=== PATIENT | male | born 1940 | race Caucasian/White ===

== ENCOUNTER 2018-02-10 01:47 | Inpatient (IN) | payer MEDICARE ==
[2018-02-10] VITALS (23 sets, daily range): BP systolic 89–127; BP diastolic 41–80; Ht 182.9 cm; Wt 72.0 kg
[~2018-02-10] VITALS: Ht 182.9 cm; Wt 72.0 kg
--- NOTE | ~2018-02-10 | MORECARE ---
CASE MANAGEMENT DISCHARGE SUMMARY PATIENT: RESHMA MORRIS UNIT: [id number] ADM DATE: 02/10/18 AGE: 77 : 41 SEX: M ROOM/BED: D.2301 AUTHOR: FRANDY CHRISTIAN PHYSICIAN: REFERRING PHYSICIAN: RESHMA MINOR MD DATE OF SERVICE: 02/10/18 Discharge Plan Patient Name: RESHMA MORRIS Facility: [facility]:[place] : 1940 Planned Disposition: Home or Self Care Anticipated Discharge Date: Discharge Date: Expected LOS: Initial Reviewer: [email or web address] Initial Review Date: 02/10/2018 Generated: 02/10/18 12:25 pm Comments DCP- Discharge Planning Updated by [email or web address]: Courtney Partida on 02/10/18 10:[address] Patient Name: RESHMA MORRIS Admission Status: ER Accout number: [id number] Admission Date: 02-10-2018 : 1940 Admission Diagnosis: Attending: RESHMA MINOR Current LOS: 1 Anticipated DC Date: Planned Disposition: Home or Self Care Primary Insurance: MEDICARE A & B Discharge Planning Comments: CM met with patient at bedside after obtaining verbal consent. Patient plans on returning home with his . Patient denies any discharge needs at this time. CM will continue to follow and assist as needed with discharge planning/ needs. Supervisor Hardboard: Courtney Partida DCPIA - Discharge Planning Initial Assessment Updated by [email or web address]: Courtney Partida on 02/10/18 11:14 am * Is the patient Alert and Oriented? Yes * How many steps to enter\exit or inside your home? * PCP [facility]ie [facility] Neurologist RACHANA Menon * Pharmacy [facility] * Preadmission Environment Home with Family * ADLs Independent * Equipment None * List name and contact numbers for known caregivers / representatives who currently or will assist patient after discharge: Isha Morris - spouse- [phone] * Verbal permission to speak to the caregivers and representatives has been obtained from the patient. N/A * Community resources currently utilized None * Additional services required to return to the preadmission environment? No * Can the patient safely return to the preadmission environment? Yes * Has this patient been hospitalized within the prior 30 days at any hospital? No Last DP export: 02/10/18 10:17 Patient Name: RESHMA MORRIS Page [id number] at 1125 All edits/amendments must be made on the electronic document DICTATION DATE: 02/10/181124 LIFE INS[employer]ANCE UNDERWRITER: MICHELLE 02/10/181124 RPT#: [id number] DC DATE: STATUS: ADM IN [facility] [address] [place] [address] END OF REPORT
--- NOTE | ~2018-02-10 | DS ---
PATIENT:RESHMA MORRIS :[birth year] MEDICAL RECORD: [id number] DISCHARGE SUMMARY ADMISSION DATE: 02/10/18 DISCHARGE DATE: 02/12/18 Mr. Morris was admitted to the hospital for observation after he complained of a bout of vertigo while driving, subsequently became nauseated and called 911. He became quite lethargic for 30 minutes and recovered in normal level of consciousness upon his arrival to the [facility]. He remained neurologically stable throughout his hospital stay and was discharged in the care of his brother back home to [place]. DISCHARGE MEDICATIONS: His discharge medications were the same as his admission medications. ACTIVITIES: Ad kurt. FOLLOWUP: He is to follow up with his primary care in [place] as well as neurosurgery. TRANSINT:[id number] Voice Confirmation ID: [id number] DOCUMENT ID: [id number] RESHMA MINOR MD CC: [id number] DICTATION DATE: 03/13/18 1155 GLUE BONE CRUSHER: 03/13/18 2337 DIS IN 02/12/18 [place] [id number] [place] [id number]
--- NOTE | ~2018-02-10 | MORECARE ---
CASE MANAGEMENT DISCHARGE SUMMARY PATIENT: RESHMA MORRIS UNIT: [id number] ADM DATE: 02/10/18 AGE: 77 : 41 SEX: M ROOM/BED: D.2301 AUTHOR: FRANDY CHRISTIAN PHYSICIAN: REFERRING PHYSICIAN: RESHMA MINOR MD DATE OF SERVICE: 02/10/18 Discharge Plan Patient Name: RESHMA MORRIS [facility] [facility] 1940 Planned Disposition: Home or Self Care Anticipated Discharge Date: Discharge Date: Expected LOS: Initial Reviewer: [email or web address] Initial Review Date: 02/10/2018 Generated: 02/10/18 12:17 pm DCPIA - Discharge Planning Initial Assessment Updated by [email or web address]: Courtney Partida on 02/10/18 11:14 am * Is the patient Alert and Oriented? Yes * How many steps to enter\exit or inside your home? * PCP [facility]ie [facility] Neurologist RACHANA Menon * Pharmacy [facility] * Preadmission Environment Home with Family * ADLs Independent * Equipment None * List name and contact numbers for known caregivers / representatives who currently or will assist patient after discharge: Isha Morris - [facility]- [phone] * Verbal permission to speak to the caregivers and representatives has been obtained from the patient. N/A * Community resources currently utilized None * Additional services required to return to the preadmission environment? No * Can the patient safely return to the preadmission environment? Yes * Has this patient been hospitalized within the prior 30 days at any hospital? No Patient Name: RESHMA MORRIS Page [id number] at 1117 All edits/amendments must be made on the electronic document DICTATION DATE: 02/10/186 QUILL WINDER: MICHELLE 02/10/181115 RPT#: [id number] DC DATE: STATUS: ADM IN [facility] [address] [place] [address] END OF REPORT
--- NOTE | ~2018-02-10 | MORECARE ---
CASE MANAGEMENT DISCHARGE SUMMARY PATIENT: RESHMA MORRIS UNIT: [id number] ADM DATE: 02/10/18 AGE: 77 : 41 SEX: M ROOM/BED: D.2308 AUTHOR: GINODOC PHYSICIAN: REFERRING PHYSICIAN: RESHMA MINOR MD DATE OF SERVICE: 02/12/18 Discharge Plan Patient Name: RESHMA MORRIS Facility: [facility]:[place] : 1940 Planned Disposition: Home or Self Care Anticipated Discharge Date: Discharge Date: 02/12/2018 Expected LOS: Initial Reviewer: [email or web address] Initial Review Date: 02/10/2018 Generated: 02/12/18 12:10 pm Comments DCP- Discharge Planning Updated by [email or web address]: Courtney Partida on 02/12/18 10:[address] IMM Explained and served 02/12/18 @ 0935 DCP- Discharge Planning Updated by [email or web address]: Courtney Partida on 02/10/18 10:[address] Patient Name: RESHMA MORRIS Admission Status: ER Accout number: [id number] Admission Date: 02-10-2018 : 1940 Admission Diagnosis: Attending: RESHMA MINOR Current LOS: 1 Anticipated DC Date: Planned Disposition: Home or Self Care Primary Insurance: MEDICARE A & B Discharge Planning Comments: CM met with patient at bedside after obtaining verbal consent. Patient plans on returning home with his . Patient denies any discharge needs at this time. CM will continue to follow and assist as needed with discharge planning/ needs. Store Stocker: Courtney Partida DCPIA - Discharge Planning Initial Assessment Updated by [email or web address]: Courtney Partida on 02/10/18 11:14 am * Is the patient Alert and Oriented? Yes * How many steps to enter\exit or inside your home? * PCP [facility]ie [facility] Neurologist RACHANA Menon * Pharmacy [facility] * Preadmission Environment Home with Family * ADLs Independent * Equipment None * List name and contact numbers for known caregivers / representatives who currently or will assist patient after discharge: Isha Morris - spouse- [phone] * Verbal permission to speak to the caregivers and representatives has been obtained from the patient. N/A * Community resources currently utilized None * Additional services required to return to the preadmission environment? No * Can the patient safely return to the preadmission environment? Yes * Has this patient been hospitalized within the prior 30 days at any hospital? No Coverage Notice Reviewer: [id number] Chapito Partida Notice Issued Date-Time: 02/12/2018 9:35 Notice Type: IM Discharge Notice Notice Delivered To: Patient Relationship to Patient: Self Ends Breakage Clerk Name: Delivery Method: HAND - Hand Delivered Juany Days: Prior Verbal Notification: Recipient Understood Notice: Yes Recipient Signature: Yes Med Rec Note Co-signed by Attending: Coverage Notice Comment: Last DP export: 02/10/18 10:25 Patient Name: RESHMA MORRIS Page [id number] at 1111 All edits/amendments must be made on the electronic document DICTATION DATE: 02/12/18 111 MANAGEMENT TRAINEE PROGRAM STORES: MICHELLE 02/12/18 1110 RPT#: [id number] DC DATE:02/12/18 STATUS: DIS IN [facility] [address] [place] [address] END OF REPORT
[2018-02-10] MEDS ORDERED: FLOMAX0.4 MG PO (02:10)
[2018-02-10] MEDS ORDERED: ZOCOR20 MG PO (02:10)
[2018-02-10] MEDS ORDERED: TIROSINT112 MCG PO (02:10)
[2018-02-10] MEDS ORDERED: XANAX0.25 MG PO (02:11)
[2018-02-10] MEDS ORDERED: VITAMIN C250 MG PO (02:11)
[2018-02-10] MEDS ORDERED: KLONOPIN1 MG PO (02:11)
[2018-02-10] MEDS ORDERED: SUPER B COMPLE150 MG (02:12)
[2018-02-10] MEDS ORDERED: MULTI-DAY VITAM1 TAB PO (02:12)
[2018-02-10] MEDS ORDERED: FOLIC ACID1 MG (02:12)
[2018-02-10 03:01] LABS: APTT 22.5 SECONDS (22.8-39.4); INR 1.06 (0.85-1.17); PROTIME 13.4 SECONDS (11.6-15.0)
[2018-02-11] VITALS (24 sets, daily range): BP systolic 91–128; BP diastolic 44–84
[2018-02-11 04:08] LABS: BASOPHILS 0 % (0-2); EOSINOPHILS 0 % (0-7); HEMATOCRIT 41.2 % (42.0-54.0); HEMOGLOBIN 14.3 g/dL (13.5-17.5); IMMATURE GRANULOCYTES 0.3 % (0-5); LYMPHOCYTES 9.8 % (15-50); MCH 31.6 pg (26.0-34.0); MCHC 34.7 g/dL (31.0-37.0); MCV 90.9 fL (80.0-100.0); MEAN PLATELET VOLUME 9.3 fL (7.4-10.4); MONOCYTES 1.2 % (2-11); NEUTROPHILS 88.7 % (40-80); PLATELET COUNT 180 10x3/uL (130-400); RBC 4.53 10x6/uL (4.20-6.10); RDW 13.3 % (11.5-14.5); WBC 7.2 10x3/uL (4.8-10.8)
[2018-02-11 04:29] LABS: ALKALINE PHOSPHATASE 81 U/L (46-116); ALT (SGPT) 21 U/L (10-68); BILIRUBIN - TOTAL 0.31 mg/dL (0.2-1.3); CALC OSMOLALITY 285 mosm/kg (275-300); CALCIUM 8.4 mg/dL (8.5-10.1); CHLORIDE - SERUM 108 mmol/L (98-107); CREATININE - SERUM 0.9 mg/dL (0.6-1.3); GLUCOSE 139 mg/dL (74-106); POTASSIUM - SERUM 4.3 mmol/L (3.5-5.1); PROTEIN - SERUM 6.4 g/dL (6.4-8.2); SODIUM 142 mmol/L (136-145); UREA NITROGEN 15 mg/dL (7-18); eGFR NON AFRICAN AMERICAN 87 mL/min (90-120)
[2018-02-12] VITALS: BP 107/49
[2018-02-12 01:00] VITALS: BP 111/56
[2018-02-12 04:00] VITALS: BP 121/71
[2018-02-12 05:00] VITALS: BP 129/65
[2018-02-12 06:00] VITALS: BP 127/74
[2018-02-12 09:00] VITALS: BP 121/76
== END 2018-02-12 10:26 | disposition home or self-care (01) | DRG 66 ==
LOC: D.ER 01:47 → D.ICU 02:02 → D.ER 02:30 → D.ICU 02-11 09:16
PROVIDERS: Family Medicine
DX: I62.00 Nontraumatic subdural hemorrhage, unspecified (principal); R42 Dizziness and giddiness